=== PATIENT | female | born 1985 | race Caucasian/White ===

== ENCOUNTER 2023-01-04 14:51 | Emergency (ER) | payer BC, SELFPAY ==
--- NOTE | ~2023-01-04 | XR_ITS ---
XR abdomen obstructive series DATE: 01/04/2023 15:22 INDICATION: Lower abdominal pain, left posterior abdominal pain for 2 hours TECHNIQUE: Supine and upright AP views COMPARISON: None FINDINGS: The lung bases appear clear. No pleural effusion is evident. Heart size appears normal. No intraperitoneal free air is detected. The psoas shadows are intact. No visceromegaly or significant abnormal calcification is noted. There is a moderately prominent amount of fecal material within the colon but no apparent bowel obstr uction. Transitional lumbosacral vertebra with sacralization pseudoarthrosis on the left. 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 Reviewed, dictated and finalized at [facility] 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
--- NOTE | 2023-01-04 14:53 | ED.ABDPAIN ---
HPI - Abdominal Pain General Chief Complaint: Abdominal Pain Stated Complaint: Abdominal Pain/Left Side Time Seen by Provider: 01/04/23 14:53 Source: patient Mode of arrival: ambulatory Limitations: no limitations History of Present Illness HPI narrative: Mony is a 37-year-old female patient presenting to the clinic today with complaints of left-sided abdominal pain that just occurred 2 hours ago. She now reports that the pain is in the lower right side of her abdomen. Pain is down to a 5/10 but she states that the pain was a lot worse prior to arrival. Last bowel movement was yesterday and normal for the patient. Is feeling bloated with slight nausea. No vomiting or diarrhea. She denies any urinary symptoms. She denies any vaginal discharge. History of a tubal ligation. No history of diverticulitis, ovarian cyst, kidney stones, or bowel issues. No concern for any sexually transmitted infections. Denies any vaginal discharge. Related Data Home Medications Medication Instructions Recorded Confirmed No Home Medications 01/04/23 01/04/23 Allergies Allergy/AdvReac Type Severity Reaction Status Date / Time No Known Allergies Allergy Verified 01/04/23 15:22 Review of Systems Review of Systems: Pertinent positives per HPI. Patient denies any fever, chills, rash, headache, visual changes, dizziness, cough, runny nose, sore throat, shortness of breath, chest pain, palpitations, vomiting, diarrhea, constipation, or any urinary issues. PMFSH Comments At the time of my signature, I reviewed and agree with the nursing past medical, surgical, social, and family history. There is no relevant family history pertinent to the patient complaint. Exam Narrative: General: Well-developed, well nourished, in no apparent distress. Head: Normocephalic, atraumatic. Cardio: Regular rate and rhythm, s1 and s2 normal, no murmur appreciated. Resp: Clear to auscultation bilaterally, no rhonchi, rales, wheezing or rubs. Abdomen: Soft, pliable, bowel sounds present in all quadrants, generalized tenderness to palpation, no organomegly, no CVAT tenderness. Course Course Emergency Course: Portions of this record may have been created with voice recognition software. Level of Care: Express Care Visit Vital Signs Vital signs: Vital signs reviewed MDM - Abdominal Pain MDM Narrative Medical decision making narrative: At the time of visit patient is resting comfortably on the exam table. UA is negative for any sign of infection, blood, or protein. Two-view abdomen was performed and shows a moderate prominent amount of fecal material in her colon. Supportive measures were discussed with the patient she voiced understanding discharge instructions agrees to treatment plan. Differential diagnosis discussed with the patient she voiced understanding and return precautions were reviewed. 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
[2023-01-04 15:05] VITALS: BP 119/75; PULSE 67; RESP 18; TEMP 36.3; O2SAT 99
== END 2023-01-04 15:45 | disposition home or self-care (01) ==
PROVIDERS: Emergency Provider Nurse Practitioner Family
DX: K59.00 Constipation, unspecified (principal)
CPT/HCPCS: 74019; 81003; 81025; 99213; G0463